=== PATIENT | female | born 1950 | race Caucasian/White ===

== ENCOUNTER 2017-02-16 23:37 | Emergency (ER) | payer OTHER ==
[~2017-02-16] VITALS: Ht 154.9 cm; Wt 61.6 kg
[~2017-02-16 23:37] MED LIST: ADVAIR 500/501 DISK IH; AMOXICILLIN875 MG PO; Ambien PO; BENZONATATE200 MG PO; CIPRO500 MG PO; CYMBALTA20 MG PO; CYMBALTA60 MG PO; Catapres PO; Citrate Of Magnesia PO; Ditropan PO; DuoNeb IH; ERGOCALCIF50000 UNIT PO; FLEXERIL5 MG PO; Glucophage PO; HIPREX1 GM PO; HYDROCODON-ACE1 EAC9 PO; KADIAN20 MG PO; KEFLEX500 MG PO; LOVASTATIN40 MG PO; METFORMIN HCL1000 MG PO; METFORMIN HCL500 MG PO; NABUMETONE750 MG PO; NEXIUM40 MG PO; NORCO 10/3251 TABLET PO; NORCO 5/3251 TABLET PO; NOVOLOG PE100 UNITS/ SC; NYSTATIN-TRIAMC15 GM TP; NYSTOP60 GM TP; Neutra-Phos,Phos-Nak PO; Norvasc PO; PERCOCET 5-3251 EACH PO; PERCOCET 5/31 TABLET PO; PRINIVIL20 MG PO; PROTONIX40 MG PO; Percocet 5/325,Endoc PO; Protonix PO; REQUIP2 MG PO; ROPINIROLE HCL12 MG PO; SANCTURA XR60 MG PO; SINGULAIR10 MG PO; Singulair PO; TYLENOL WITH C1 EACH PO; Tylenol Regular Stre PO; VENTOLIN HFA18 GM IH; VESICARE10 MG PO; VIBRAMYCIN100 MG PO; VYTORIN 10-801 EACH PO; Vytorin 10/20 PO; ZOFRAN ODT4 MG PO; ZOFRAN4 MG PO; Zestril,Prinivil PO
[2017-02-17 00:43] LABS: MCH 30.1 PG (29.0-34.0); MCHC 32.7 G/DL (30.0-36.0); MEAN PLAT.VOLUME 8.5 uM^3 (9.5-12.4); PLATELET COUNT 339 K/uL (156-360); RBC DIS.WIDTH-CV 13.7 % (11.8-14.6); RBC DIS.WIDTH-SD 46.8 % (39-53); RED BLOOD COUNT 4.02 M/uL (3.80-5.20)
[2017-02-17 00:56] LABS: CHLORIDE 102 mEq/L (99-109); POTASSIUM 2.8 mEq/L (3.7-5.4); SODIUM 138 mEq/L (136-147)
[2017-02-17 00:58] LABS: GLUCOSE 106 mg/dL (70-99)
[2017-02-17 00:59] LABS: ANION GAP 10 MEQ/L (2-14)
[2017-02-17 01:01] LABS: GFR ESTIMATE (CALCULATED) > 59 mL/min/
[2017-02-17 01:02] LABS: UREA NITROGEN (BUN) 10 mg/dL (9-23)
[2017-02-17] MEDS ORDERED: DOXYCYCLINE HY100 MG PO (01:38)
[2017-02-17 02:02] VITALS: BP 131/81
== END 2017-02-17 02:06 | disposition home or self-care (01) ==
LOC: EME 23:37
DX: J44.0 Chronic obstructive pulmonary disease with (acute) lower respiratory infection (principal); J20.9 Acute bronchitis, unspecified; I10 Essential (primary) hypertension; E11.9 Type 2 diabetes mellitus without complications; Z79.84 Long term (current) use of oral hypoglycemic drugs; E78.5 Hyperlipidemia, unspecified; K21.9 Gastro-esophageal reflux disease without esophagitis; F32.9 Major depressive disorder, single episode, unspecified; Z96.643 Presence of artificial hip joint, bilateral; S12.9XXS Fracture of neck, unspecified, sequela; G83.89 Other specified paralytic syndromes; Z98.1 Arthrodesis status
CPT/HCPCS: 71020; 80048; 85027; 99281; 99284